=== PATIENT | female | born 1930 | race Caucasian/White ===

== ENCOUNTER 2020-03-27 13:10 | Inpatient (IN) | payer OTHER ==
[~2020-03-27] VITALS: Ht 160 cm; Wt 81.6 kg
[2020-03-27 13:11] VITALS: BP 188/64
[2020-03-27 14:32] LABS: HEMOGLOBIN 11.8 gm/dL (12.0-15.0); MCH 27.7 pg (26.0-34.0); MCHC 31.8 g/dL (28.0-37.0); MCV 87.2 fL (80.0-100.0); PLATELET COUNT 186 thou/uL (150-400); RBC 4.24 mil/uL (4.20-5.00); RDW 16.8 % (10.5-14.5); WBC 19.2 thou/uL (4.0-11.0)
[2020-03-27 14:42] LABS: CALCIUM 8.7 mg/dL (8.5-10.1); CREATININE 0.9 mg/dL (0.6-1.0); POTASSIUM 3.2 mmol/L (3.5-5.1)
[2020-03-27 14:47] LABS: ABSOLUTE NEUTROPHILS 17.9 thou/uL (1.4-8.2); ATYPICAL LYMPHS 2 %; MAGNESIUM 1.8 mg/dL (1.8-2.4)
[2020-03-27 14:48] LABS: ANISOCYTOSIS 1+; PLATELET ESTIMATE NORMAL
[2020-03-27 18:15] VITALS: BP 188/64
[2020-03-27 18:45] VITALS: BP 176/72
[2020-03-27 19:19] VITALS: BP 144/71
--- NOTE | 2020-03-27 22:09 | NUR ---
Arrived from ER around 1900. Adm hx,assessment done. Unable to do med rec at this time. Pt. is not interested stating she is so tired ,not feeloing well and not just up to it. She is requesting for her BP med and other HS meds . Explained to her unless she tells me what her meds are I can't call the doctor to get an order for it. She then decided she does not have to take it tonight but then worries about her BP. Daughter called who does not have a med list but able to tell me which pharmacy pt. is using. SCD's C/I due to bautista leg cellulitis , lovenox SQ given per order.
--- NOTE | 2020-03-27 22:45 | NUR ---
Dr. Ana Diehl notified of negative COVID PCR result who gave an order to DC enhanced precaution and take off isolation. supervisor costuming also notified.
[2020-03-28 00:07] VITALS: BP 151/43
[2020-03-28 03:11] LABS: HEMATOCRIT 34.7 % (37.0-47.0); HEMOGLOBIN 11.1 gm/dL (12.0-15.0); MCHC 32.1 g/dL (28.0-37.0); MCV 87.3 fL (80.0-100.0); RBC 3.98 mil/uL (4.20-5.00); RDW 16.5 % (10.5-14.5); WBC 14.8 thou/uL (4.0-11.0)
[2020-03-28 03:16] LABS: CALCIUM 8.2 mg/dL (8.5-10.1); CREATININE 0.8 mg/dL (0.6-1.0); POTASSIUM 3.4 mmol/L (3.5-5.1)
[2020-03-28 04:15] VITALS: BP 150/66
--- NOTE | 2020-03-28 05:45 | NUR ---
Pt. slept fair during the night. Tylenol given for generalized body ache with some help. SR,BBB with occasional PVC's. Wears brief for incontince. Assisted up to commode but her brief is already soaked and while going back to bed she has stress incontinence. Pt. was asked if she's ready to go over her med list and stated she has to call her daughter for her med list.
--- NOTE | 2020-03-28 07:36 | EKG ---
[facility] [place] [address] ELECTROCARDIOGRAM REPORT Name: MARILU JULIEN Room #: 356-P ADM IN M.R.#: [id number] Admission: 03/27/20 Attend Phys: Rodrigo Griffin MD Discharge: Date of : [birth year] Report #: [id number] THIS REPORT FOR: cc: Hung Veliz MD, Christopher MD Santiago, Patrick MD [facility] ~ THIS REPORT FOR: //name// [facility] ED Test Date: 2020-03-27 Test Time: 13:59:59 Pat Name: MARILU JULIEN Department: Room: 356 Gender: F Web Search Evaluator: [facility] : 1930 Requested By: Anand Donnelly Order Number: [id number] MD: Tito Solorzano Measurements Intervals [place] Rate: 69 P: 41 TN: 183 QRS: 36 QRSD: 152 T: 9 QT: 458 QTc: 491 Interpretive Statements Sinus rhythm Atrial premature complex Right bundle branch block No previous ECG available for comparison Electronically Signed On 03-28-2020 7:36:11 CDT by Tito Solorzano [email or web address] <ELECTRONICALLY SIGNED> By: Tito Solorzano MD, FACC 03/28/20 0736 [id number] Tito Solorzano MD, [facility] /EPI
[2020-03-28 07:51] VITALS: BP 183/53
[2020-03-28] MEDS ORDERED: DESYREL150 MG PO (10:18)
[2020-03-28] MEDS ORDERED: TIZANIDINE HCL 22 M1 PO (10:19)
[2020-03-28] MEDS ORDERED: KLOR-CON 1010 MEQ PO (10:19)
[2020-03-28] MEDS ORDERED: LASIX 40 MG TAB40 MG PO (10:20)
[2020-03-28] MEDS ORDERED: GABAPENTIN100 MG PO (10:20)
[2020-03-28] MEDS ORDERED: LEVOTHYROXINE125 MCG PO (10:22)
[2020-03-28] MEDS ORDERED: LOPRESSOR50 MG PO (10:22)
[2020-03-28] MEDS ORDERED: LEXAPRO20 MG PO (10:23)
[2020-03-28 11:38] VITALS: BP 191/77
--- NOTE | 2020-03-28 19:19 | NUR ---
call placed to BIOLOGICAL LAB TECHNICIAN regarding BP, 188/90 hr 116. reported last dose of metoprolol 50 mg. new order for prn hydralazine given now. hs nurse made aware and will give dose.
[2020-03-28 21:15] VITALS: BP 193/97
[2020-03-29 00:04] VITALS: BP 173/65
[2020-03-29 04:30] VITALS: BP 181/73
--- NOTE | 2020-03-29 05:26 | NUR ---
Pt. slept better last night. O2 sat 87-88% in RA while asleep. PROCESS CHEESE COOKER and RT notified. O2 at 2L/NC placed with O2 sat in the mid 90's. Denies any pain, afebrile. BP elevated,prn med given. Up with assist to commode with periods of incontinence.
--- NOTE | 2020-03-29 05:31 | NUR ---
[employer] and houseperson notified of 2nd negative COVID PCR results.
[2020-03-29 05:53] LABS: HEMATOCRIT 31.5 % (37.0-47.0); HEMOGLOBIN 10.4 gm/dL (12.0-15.0); MCH 28.6 pg (26.0-34.0); MCHC 33.1 g/dL (28.0-37.0); MCV 86.6 fL (80.0-100.0); RBC 3.63 mil/uL (4.20-5.00); WBC 10.2 thou/uL (4.0-11.0)
[2020-03-29 06:01] LABS: CALCIUM 8.5 mg/dL (8.5-10.1); CREATININE 0.6 mg/dL (0.6-1.0); POTASSIUM 3.2 mmol/L (3.5-5.1)
[2020-03-29 06:11] VITALS: BP 167/66
[2020-03-29 07:30] VITALS: BP 150/56
[2020-03-29 10:05] LABS: URINE BILIRUBIN NEGATIVE (Negative); URINE BLOOD TRACE (Negative); URINE CLARITY CLEAR; URINE COLOR YELLOW; URINE GLUCOSE-RANDOM* NEGATIVE (Negative); URINE KETONES 1+ (Negative); URINE LEUKOCYTES-REFLEX NEGATIVE (Negative); URINE NITRITE-REFLEX NEGATIVE (Negative); URINE PROTEIN (DIPSTICK) TRACE (Negative); URINE SPECIFIC GRAVITY 1.015 (1.005-1.035); URINE UROBILINOGEN 0.2 E.U./dl (0.2-1.0)
--- NOTE | 2020-03-29 12:45 | NUR ---
Md called and notified of K+ 3.2, and Chloride + 108. New orders placed in system. Pt in no acute distress will continue to monitor.
--- NOTE | 2020-03-29 14:35 | NUR ---
INITIAL ASSESSMENT: Received consult for discharge planning. SW reviewed chart and spoke with nursing and attending physician. Pt was admitted from home due to sepsis/cellulitis. Pt placed in Enhanced Isolation to r/o COVID-19. Pt is negative x 2. Pt is afebrile and on IV abx. Pt is on 2L of O2. SW spoke with pt vie phone. Introduced role of SW. Pt is alert/orientated and reports she lives alone in a high-rise apt complex. Pt has elevator access and no stairs to navigate. Prior to admission, pt was using a walker. Pt's dtr, Susi, is supportive and involved in pt's care. No hx of services or post-acute placement. Pt's PCP is Dr. Hung Veliz. Pt's goal is to return home when medically stable. SW is following to assist as needed with discharge planning.
[2020-03-29 17:02] VITALS: BP 180/99
--- NOTE | 2020-03-29 18:54 | NUR ---
Report given to nurse, pt remains alert and responsive, transported via wc to unit. Shravan called and notified of transfer.
[2020-03-29 19:43] VITALS: BP 139/70
--- NOTE | 2020-03-30 03:48 | NUR ---
ASSESSMENT DOCUMENTED.PT BEEN RESTING IN NO ACUTE DISTRESS.AOX4.CONFEDERATED COOS.VSS.BLES ELEVATED D/T EDEMA/CELLULITIS.O2 AT 2LITERS PNC WHILE ASLEEP.PT DENIES PAIN OR ANY DISTRESS AT THIS TIME.POSSIBLE DISCHARGE TODAY OR TOMORROW.
[2020-03-30 04:20] VITALS: BP 173/77
[2020-03-30 05:55] LABS: HEMATOCRIT 30.6 % (37.0-47.0); MCH 28.5 pg (26.0-34.0); MCHC 32.6 g/dL (28.0-37.0); MCV 87.5 fL (80.0-100.0); RBC 3.5 mil/uL (4.20-5.00); RDW 17.1 % (10.5-14.5)
[2020-03-30 06:39] LABS: CALCIUM 8.5 mg/dL (8.5-10.1); CREATININE 0.8 mg/dL (0.6-1.0); POTASSIUM 3.2 mmol/L (3.5-5.1)
[2020-03-30 08:15] VITALS: BP 192/79
[2020-03-30 13:20] VITALS: BP 161/87
--- NOTE | 2020-03-30 14:37 | NUR ---
AAOX4. ROBINSON. K+ 3.2, REPLACED. SR WITH BBB PER TELE. INCONTINENT OF STOOL AND URINE, MULTIPLE BED CHANGES. WILL CONTINUE TO FOLLOW CLOSELY.
[2020-03-30 16:13] VITALS: BP 161/87
[2020-03-30 16:52] VITALS: BP 192/79
[2020-03-30 20:07] VITALS: BP 194/64
[2020-03-30] MEDS ORDERED: PREVACID30 MG PO (21:03)
[2020-03-31] VITALS (9 sets, daily range): BP systolic 134–198; BP diastolic 57–74
--- NOTE | 2020-03-31 03:49 | NUR ---
ASSESSMENT DOCUMENTED.PT BEEN RESTING IN NO ACUTE DISTRESS.A/OX4 W/FORGETFULNESS.C/O GASTRIC REFLUX THAT WAS TREATED WITH PPI PER ON SITE COORDINATOR ORDERS W/RELIEF.SR/BBB ON MONITOR.DENIES PAIN OR ANY OTHER NEEDS AT THIS TIME.
--- NOTE | 2020-03-31 18:43 | NUR ---
PT CARE ASSUMED AT 0700. ASSESSMENTS CHARTED. MEDICATION CHARTED. PT HAS STRESS INCONTINENCE; IF SHE NEEDS TO GO SHE MEANS NOW. LOOSE BM. STEFANIA IV. PT UTILIZES A PUREWICK. BP OCCASSIONALLY HIGH; HYDRALAZINE TO BE GIVEN > 160. PT UTILIZES BSC.
[2020-04-01] VITALS (8 sets, daily range): BP systolic 153–186; BP diastolic 73–86
--- NOTE | 2020-04-01 03:57 | NUR ---
ASSESSMENT DOCUMENTED.PT BEEN SLEEPING MOST OF THE NOC.A/OX4 WITH FORGETFULNESS.VSS.DENIES ANY NEEDS OR ANY DISTRESS AT THIS TIME.POSSIBLE DISCHARGE TO HOME WITH HH TOMORROW.WILL CONT TO MONITOR PER POC.
--- NOTE | 2020-04-01 17:47 | NUR ---
PT CARE ASSUMED AT 0700. ASSESSMENTS CHARTED. MEDICATION CHARTED. PT HAD TWO BM'S; ONE LOOSE AND ONE PASTY. PT REQUESTED AND RECIEVED IMODIUM. PT RECIEVED HYDRALAZINE FOR BP > 160. IF PT CALLS FOR BM IT IS URGENT. DO NOT USE RT SIDE FOR STICKS OR BP'S. POSSIBLY HOME THURSDAY WITH HH.
[2020-04-01] MEDS ORDERED: TRAMADOL 50 MG50 MG PO (21:41)
[2020-04-02 04:12] LABS: HEMATOCRIT 31.7 % (37.0-47.0); HEMOGLOBIN 10.4 gm/dL (12.0-15.0); MCH 28.4 pg (26.0-34.0); MCHC 32.7 g/dL (28.0-37.0); MCV 86.8 fL (80.0-100.0); RBC 3.65 mil/uL (4.20-5.00); RDW 16.6 % (10.5-14.5); WBC 6.3 thou/uL (4.0-11.0)
[2020-04-02 04:20] LABS: CALCIUM 8.4 mg/dL (8.5-10.1); CREATININE 0.8 mg/dL (0.6-1.0); POTASSIUM 3.5 mmol/L (3.5-5.1)
--- NOTE | 2020-04-02 04:50 | NUR ---
ASSUMED CARE OF PATIENT AT 1900. PATIENT C/O SHOULDER PAIN AND BILATERAL LEG PAIN. PATIENT STATED SHE TAKES TRAMADOL BID AT HOME. UPDATED MED REC AND OBTAINED ORDER FOR PRN TRAMADOL. ADMINISTERED ORDERED. PATIENT HAS 2-3+ BLE EDEMA. PATIENT DENIES SOA AND CHEST PAIN AND CONTINUES ON RA WITH ADEQUATE OXYGEN SATUATIONS.
[2020-04-02 05:45] VITALS: BP 189/83
[2020-04-02 08:21] VITALS: BP 174/73
[2020-04-02 11:30] VITALS: BP 164/94
[2020-04-02] MEDS ORDERED: AMOX TR-K CLV1 EAC4 PO (11:47)
[2020-04-02] MEDS ORDERED: METOPROLOL SUCC50 MG PO (11:47)
[2020-04-02] MEDS ORDERED: BENAZEPRIL HCL20 MG PO (11:47)
[2020-04-02] MEDS ORDERED: ACETAMINOPHEN325 M1 PO (11:47)
[2020-04-02 13:10] VITALS: BP 161/87
--- NOTE | 2020-04-02 15:56 | NUR ---
ASSUMED CARE PT SHIFT CHANGE. ASSESSMENTS CHARTED.MEDS GIVEN PER SEP. PT ALERT AND ORIENTED.VSS. BP ELEVATED- MANAGED WITH BP MEDS. PT UP X1 ASSIST TOLERATING WELL. O2 SATS WNL ON RA. DENIES SOB. DC ORDERS ACKNOWLEDGED AND IMPLEMENTED. DISCUSSED WITH PT AND DAUGHTER. DISCUSSED PRIMARY CARE PHYSICIANS PT WOULD LIKE TO SWITCH. DISCUSSED IN DETAIL MEDICATIONS. IV REMOVED. TELE REMOVED. PT LEFT UNIT WITH ALL BELONGINGS ACCOMPANIED BY DAUGHTER.
[2020-04-02 16:03] VITALS: BP 161/87
--- NOTE | 2020-04-02 16:28 | NUR ---
PT [facility] TODAY [facility] DC ORDERS/SUMMARY SPOKE WITH NERIS IN INTAKE SHE RECEIVED ORDERS AND WILL NOTIFY PT TO SET UP VISITS.
== END 2020-04-02 13:50 | disposition home health service (06) | DRG 871 ==
LOC: ER 13:10 → EROBS 16:54 → 3W 16:54 → 2N 03-29 18:02
PROVIDERS: Emergency Medicine; Internal Medicine; ADMIT Hospitalist; ATTEND Hospitalist
DX: A41.9 Sepsis, unspecified organism (principal); J18.9 Pneumonia, unspecified organism; J96.01 Acute respiratory failure with hypoxia; G92 Toxic encephalopathy; L03.116 Cellulitis of left lower limb; L03.115 Cellulitis of right lower limb; R65.20 Severe sepsis without septic shock; I10 Essential (primary) hypertension; E03.9 Hypothyroidism, unspecified; K21.9 Gastro-esophageal reflux disease without esophagitis; R19.7 Diarrhea, unspecified; N32.81 Overactive bladder; E87.6 Hypokalemia; Z20.828 Contact with and (suspected) exposure to other viral communicable diseases; Z79.899 Other long term (current) drug therapy; Z85.41 Personal history of malignant neoplasm of cervix uteri; Z85.3 Personal history of malignant neoplasm of breast
CPT/HCPCS: 10080; 10194; 10879

== ENCOUNTER 2020-10-27 14:22 | Emergency (ER) | payer OTHER ==
[~2020-10-27] VITALS: Ht 160 cm; Wt 77.1 kg
[~2020-10-27 14:22] MED LIST: ACETAMINOPHEN325 M1 PO; AMOX TR-K CLV1 EAC4 PO; BENAZEPRIL HCL20 MG PO; DESYREL150 MG PO; GABAPENTIN100 MG PO; KLOR-CON 1010 MEQ PO; LASIX 40 MG TAB40 MG PO; LEVOTHYROXINE125 MCG PO; LEXAPRO20 MG PO; LOPRESSOR50 MG PO; METOPROLOL SUCC50 MG PO; PREVACID30 MG PO; TIZANIDINE HCL 22 M1 PO; TRAMADOL 50 MG50 MG PO
[2020-10-27 15:31] LABS: ABSOLUTE NEUTROPHILS 3.6 thou/uL (1.4-8.2); BASOPHILS 1.1 % (0.0-2.0); HEMATOCRIT 33.7 % (37.0-47.0); LYMPHOCYTES 17.9 % (24.0-44.0); MCH 28.9 pg (26.0-34.0); MCHC 32.6 g/dL (28.0-37.0); MCV 88.7 fL (80.0-100.0); MONOCYTES 8.9 % (1.0-8.0); PLATELET COUNT 219 thou/uL (150-400); POLYS 66.1 % (36.0-66.0); RBC 3.79 mil/uL (4.20-5.00); RDW 15.5 % (10.5-14.5); WBC 5.5 thou/uL (4.0-11.0)
[2020-10-27 15:37] LABS: CALCIUM 8.5 mg/dL (8.5-10.1); CREATININE 1.1 mg/dL (0.6-1.0); POTASSIUM 3.7 mmol/L (3.5-5.1)
[2020-10-27 15:43] LABS: TOTAL BILIRUBIN 0.3 mg/dL (0.2-1.0); TOTAL PROTEIN 6.6 g/dL (6.4-8.2)
[2020-10-27 17:16] VITALS: BP 173/53
== END 2020-10-27 17:16 | disposition home or self-care (01) ==
LOC: ER 14:22
PROVIDERS: Physician Assistant
DX: L03.115 Cellulitis of right lower limb (principal); I10 Essential (primary) hypertension; E78.00 Pure hypercholesterolemia, unspecified; Z88.0 Allergy status to penicillin; Z79.899 Other long term (current) drug therapy; Z90.710 Acquired absence of both cervix and uterus

== ENCOUNTER → 2020-12-03 | Outpatient (CLI) | payer OTHER | LOC: HYPER 08:46 | PROVIDERS: ATTEND Emergency Medicine | DX: L97.822 Non-pressure chronic ulcer of other part of left lower leg with fat layer exposed (principal); L97.812 Non-pressure chronic ulcer of other part of right lower leg with fat layer exposed; L03.116 Cellulitis of left lower limb; I89.0 Lymphedema, not elsewhere classified; I10 Essential (primary) hypertension; E66.9 Obesity, unspecified; Z68.31 Body mass index [BMI] 31.0-31.9, adult ==

== ENCOUNTER → 2020-12-17 | Outpatient (CLI) | payer OTHER ==
[~2020-12-17] MED LIST changes: +ASA81BEC PO; +BENZONATATE100 MG PO; +CLOTRIMAZOLE-BE15 GM TOP; +GENTAK3.5 G1 TOP; +MECLIZINE HCL25 M1 PO; +PLAVIX 75 MG TA75 MG PO
== END ==
LOC: SJCVCIMAG 15:00
PROVIDERS: ATTEND Emergency Medicine
DX: I70.203 Unspecified atherosclerosis of native arteries of extremities, bilateral legs (principal); L97.818 Non-pressure chronic ulcer of other part of right lower leg with other specified severity; L97.828 Non-pressure chronic ulcer of other part of left lower leg with other specified severity

== ENCOUNTER → 2020-12-18 | Outpatient (CLI) | payer OTHER | LOC: SJCVC 14:28 | PROVIDERS: ATTEND Nuclear Medicine Nuclear Cardiology | DX: I73.9 Peripheral vascular disease, unspecified (principal); L97.919 Non-pressure chronic ulcer of unspecified part of right lower leg with unspecified severity; L97.929 Non-pressure chronic ulcer of unspecified part of left lower leg with unspecified severity; I10 Essential (primary) hypertension; Z88.0 Allergy status to penicillin; Z88.5 Allergy status to narcotic agent; Z88.8 Allergy status to other drugs, medicaments and biological substances; Z79.899 Other long term (current) drug therapy; Z87.891 Personal history of nicotine dependence ==

== ENCOUNTER → 2020-12-18 | Outpatient (CLI) | payer OTHER | LOC: HYPER 07:58 | PROVIDERS: ATTEND Emergency Medicine | DX: L97.822 Non-pressure chronic ulcer of other part of left lower leg with fat layer exposed (principal); L97.812 Non-pressure chronic ulcer of other part of right lower leg with fat layer exposed; L03.115 Cellulitis of right lower limb; L03.116 Cellulitis of left lower limb; I89.0 Lymphedema, not elsewhere classified; E66.9 Obesity, unspecified; I10 Essential (primary) hypertension; Z68.31 Body mass index [BMI] 31.0-31.9, adult ==

== ENCOUNTER 2020-12-21 18:18 | Emergency (ER) | payer OTHER ==
[~2020-12-21] VITALS: Ht 160 cm; Wt 79.4 kg
[2020-12-21 19:35] LABS: ABSOLUTE NEUTROPHILS 4.6 thou/uL (1.4-8.2); BASOPHILS 0.5 % (0.0-2.0); EOSINOPHILS 1.8 % (0.0-3.0); HEMATOCRIT 33.2 % (37.0-47.0); HEMOGLOBIN 10.9 gm/dL (12.0-15.0); LYMPHOCYTES 15.8 % (24.0-44.0); MCH 28.9 pg (26.0-34.0); MCHC 32.9 g/dL (28.0-37.0); MONOCYTES 12.4 % (1.0-8.0); PLATELET COUNT 221 thou/uL (150-400); POLYS 69.5 % (36.0-66.0); RBC 3.77 mil/uL (4.20-5.00); RDW 15.6 % (10.5-14.5); WBC 6.7 thou/uL (4.0-11.0)
[2020-12-21 19:41] LABS: ANION GAP 10 mmol/L (7-16); BUN 12 mg/dL (7-18); CALCIUM 8.1 mg/dL (8.5-10.1); CHLORIDE 106 mmol/L (98-107); CO2 26 mmol/L (21-32); CREATININE 1.1 mg/dL (0.6-1.0); GLUCOSE 138 mg/dL (74-106); POTASSIUM 3.5 mmol/L (3.5-5.1); SODIUM 142 mmol/L (136-145)
[2020-12-21 19:51] LABS: ALBUMIN 2.9 g/dL (3.4-5.0); SGOT 16 U/L (15-37); SGPT 17 U/L (14-59); TOTAL BILIRUBIN 0.3 mg/dL (0.2-1.0); TROPONIN-I <0.06 ng/mL (<0.06)
[2020-12-21 20:25] LABS: APTT 21.3 Seconds (24.5-32.8); PROTIME 10.9 Seconds (10.5-12.1)
[2020-12-21 21:39] VITALS: BP 171/53
--- NOTE | 2020-12-24 07:19 | EKG ---
[place] [address] [facility] [address] ELECTROCARDIOGRAM REPORT Name: MARILU JULIEN Room #: [facility]#: [id number] Admission: 12/21/20 Attend Phys: Discharge: 12/21/20 Date of : [birth year] Report #: [id number] [facility] ED Test Date: 2020-12-21 Test Time: 18:36:43 Pat Name: MARILU JULIEN Department: Room: Gender: F Non Destructive Testing Supervisor: MARIO : 1930 Requested By: Thompson Mccoy Order Number: [id number] MD: Tito Solorzano Measurements Intervals [place] Rate: 53 P: 35 W[place]: 157 QRS: 70 QRSD: 150 T: 25 QT: 529 QTc: 497 Interpretive Statements Sinus arrhythmia Right bundle branch block Compared to ECG 03/27/2020 13:59:59 Sinus rhythm no longer present Atrial premature complex(es) no longer present Electronically Signed On 12-24-2020 7:19:35 CDT by Tito Solorzano [email or web address] <ELECTRONICALLY SIGNED> By: Tito Solorzano MD, [facility] 12/24/20 0719 35 35 Tito Solorzano MD, FACC /EPI
== END 2020-12-21 21:39 | disposition home or self-care (01) ==
LOC: ER 18:18
PROVIDERS: Emergency Medicine
DX: R07.89 Other chest pain (principal); R41.82 Altered mental status, unspecified; I10 Essential (primary) hypertension; E78.00 Pure hypercholesterolemia, unspecified; Z88.5 Allergy status to narcotic agent; Z88.0 Allergy status to penicillin; Z88.8 Allergy status to other drugs, medicaments and biological substances; Z79.899 Other long term (current) drug therapy; Z79.82 Long term (current) use of aspirin; Z90.710 Acquired absence of both cervix and uterus; Z96.651 Presence of right artificial knee joint

== ENCOUNTER → 2020-12-21 | Outpatient (CLI) | payer OTHER ==
[~2020-12-21] VITALS: Ht 157.5 cm; Wt 79.4 kg
[2020-12-21 07:24] VITALS: BP 216/68
[2020-12-21 07:54] LABS: HEMATOCRIT 33.6 % (37.0-47.0); HEMOGLOBIN 10.9 gm/dL (12.0-15.0); MCH 28.3 pg (26.0-34.0); MCHC 32.5 g/dL (28.0-37.0); RBC 3.86 mil/uL (4.20-5.00); WBC 4.5 thou/uL (4.0-11.0)
[2020-12-21 07:56] LABS: CALCIUM 8.7 mg/dL (8.5-10.1); CREATININE 1.1 mg/dL (0.6-1.0); POTASSIUM 3.9 mmol/L (3.5-5.1)
== END | disposition home or self-care (01) ==
LOC: CATH 06:52
PROVIDERS: ATTEND Nuclear Medicine Nuclear Cardiology
DX: I70.248 Atherosclerosis of native arteries of left leg with ulceration of other part of lower leg (principal); L97.929 Non-pressure chronic ulcer of unspecified part of left lower leg with unspecified severity; I10 Essential (primary) hypertension; I25.10 Atherosclerotic heart disease of native coronary artery without angina pectoris; I70.1 Atherosclerosis of renal artery; E78.00 Pure hypercholesterolemia, unspecified; Z98.890 Other specified postprocedural states; Z79.899 Other long term (current) drug therapy; Z96.651 Presence of right artificial knee joint; Z90.710 Acquired absence of both cervix and uterus; Z96.641 Presence of right artificial hip joint; Z82.49 Family history of ischemic heart disease and other diseases of the circulatory system; Z87.891 Personal history of nicotine dependence; Z85.3 Personal history of malignant neoplasm of breast; Z80.0 Family history of malignant neoplasm of digestive organs

== ENCOUNTER → 2021-01-31 | Outpatient (CLI) | payer OTHER | LOC: SJCVCIMAG 09:59 | PROVIDERS: ATTEND Nuclear Medicine Nuclear Cardiology | DX: I65.23 Occlusion and stenosis of bilateral carotid arteries (principal); M79.604 Pain in right leg; M79.89 Other specified soft tissue disorders; I73.9 Peripheral vascular disease, unspecified; I77.9 Disorder of arteries and arterioles, unspecified; I10 Essential (primary) hypertension; L97.919 Non-pressure chronic ulcer of unspecified part of right lower leg with unspecified severity; L97.929 Non-pressure chronic ulcer of unspecified part of left lower leg with unspecified severity; E78.5 Hyperlipidemia, unspecified; Z87.891 Personal history of nicotine dependence; Z82.49 Family history of ischemic heart disease and other diseases of the circulatory system; Z88.0 Allergy status to penicillin; Z88.5 Allergy status to narcotic agent; Z88.8 Allergy status to other drugs, medicaments and biological substances; Z79.82 Long term (current) use of aspirin; Z79.899 Other long term (current) drug therapy ==

== ENCOUNTER → 2021-02-11 | Outpatient (CLI) | payer OTHER ==
[2021-02-11 15:34] LABS: CREATININE 1.1 mg/dL (0.6-1.0)
== END ==
LOC: CAT 10:51 → LAB 14:33 → CAT 14:33
PROVIDERS: ATTEND Nuclear Medicine Nuclear Cardiology
DX: I65.23 Occlusion and stenosis of bilateral carotid arteries (principal)

== ENCOUNTER → 2021-02-13 | Outpatient (CLI) | payer OTHER | LOC: CAT 09:02 | PROVIDERS: ATTEND Nuclear Medicine Nuclear Cardiology | DX: I65.23 Occlusion and stenosis of bilateral carotid arteries (principal) ==

== ENCOUNTER 2021-03-22 01:15 | Emergency (ER) | payer OTHER ==
[~2021-03-22] VITALS: Ht 167.6 cm; Wt 90.7 kg
[2021-03-22 03:22] VITALS: BP 130/88
== END 2021-03-22 03:23 ==
LOC: ER 01:15
DX: S01.01XA Laceration without foreign body of scalp, initial encounter (principal); S00.03XA Contusion of scalp, initial encounter; I10 Essential (primary) hypertension; E78.00 Pure hypercholesterolemia, unspecified; Z90.89 Acquired absence of other organs; Z90.710 Acquired absence of both cervix and uterus; Z79.899 Other long term (current) drug therapy; Z88.5 Allergy status to narcotic agent; Z88.0 Allergy status to penicillin; W08.XXXA Fall from other furniture, initial encounter; Y93.89 Activity, other specified; Y92.89 Other specified places as the place of occurrence of the external cause; Y99.8 Other external cause status

== ENCOUNTER → 2021-03-25 | Outpatient (CLI) | payer OTHER | LOC: HYPER 01:33 | PROVIDERS: ATTEND Emergency Medicine | DX: L97.822 Non-pressure chronic ulcer of other part of left lower leg with fat layer exposed (principal); L97.812 Non-pressure chronic ulcer of other part of right lower leg with fat layer exposed; S80.822D Blister (nonthermal), left lower leg, subsequent encounter; S80.821D Blister (nonthermal), right lower leg, subsequent encounter; L03.116 Cellulitis of left lower limb; I89.0 Lymphedema, not elsewhere classified; E66.9 Obesity, unspecified; Z68.31 Body mass index [BMI] 31.0-31.9, adult; Z79.899 Other long term (current) drug therapy; X58.XXXD Exposure to other specified factors, subsequent encounter ==

== ENCOUNTER → 2021-04-09 | Outpatient (CLI) | payer OTHER | LOC: HYPER 09:11 | PROVIDERS: ATTEND Emergency Medicine | DX: L97.812 Non-pressure chronic ulcer of other part of right lower leg with fat layer exposed (principal); L97.822 Non-pressure chronic ulcer of other part of left lower leg with fat layer exposed; L03.116 Cellulitis of left lower limb; I89.0 Lymphedema, not elsewhere classified; I10 Essential (primary) hypertension; E66.9 Obesity, unspecified; Z68.31 Body mass index [BMI] 31.0-31.9, adult; Z79.899 Other long term (current) drug therapy ==

== ENCOUNTER → 2021-04-18 | Outpatient (CLI) | payer OTHER | LOC: HYPER 10:39 | PROVIDERS: ATTEND Emergency Medicine | DX: L97.812 Non-pressure chronic ulcer of other part of right lower leg with fat layer exposed (principal); L97.822 Non-pressure chronic ulcer of other part of left lower leg with fat layer exposed; L03.116 Cellulitis of left lower limb; I89.0 Lymphedema, not elsewhere classified; I10 Essential (primary) hypertension; E66.9 Obesity, unspecified; Z68.31 Body mass index [BMI] 31.0-31.9, adult ==

== ENCOUNTER → 2021-05-24 | Outpatient (CLI) | payer OTHER | LOC: HYPER 08:53 | PROVIDERS: ATTEND Emergency Medicine Emergency Medical Services | DX: L97.822 Non-pressure chronic ulcer of other part of left lower leg with fat layer exposed (principal); L97.812 Non-pressure chronic ulcer of other part of right lower leg with fat layer exposed; L03.116 Cellulitis of left lower limb; I89.0 Lymphedema, not elsewhere classified; I10 Essential (primary) hypertension; E66.9 Obesity, unspecified; Z79.899 Other long term (current) drug therapy ==

== ENCOUNTER → 2021-06-13 | Outpatient (CLI) | payer OTHER | LOC: HYPER 12:55 | PROVIDERS: ATTEND Emergency Medicine | DX: L97.822 Non-pressure chronic ulcer of other part of left lower leg with fat layer exposed (principal); L97.812 Non-pressure chronic ulcer of other part of right lower leg with fat layer exposed; L03.116 Cellulitis of left lower limb; I89.0 Lymphedema, not elsewhere classified; I10 Essential (primary) hypertension; E66.9 Obesity, unspecified; R60.0 Localized edema; Z68.31 Body mass index [BMI] 31.0-31.9, adult ==

== ENCOUNTER 2021-07-24 15:29 | Emergency (ER) | payer OTHER ==
[~2021-07-24] VITALS: Ht 160 cm; Wt 81.7 kg
[2021-07-24 15:58] LABS: ABSOLUTE NEUTROPHILS 2.8 thou/uL (1.4-8.2); BASOPHILS 1.2 % (0.0-2.0); EOSINOPHILS 1.1 % (0.0-3.0); HEMATOCRIT 25.3 % (37.0-47.0); HEMOGLOBIN 7.7 gm/dL (12.0-15.0); LYMPHOCYTES 17.2 % (24.0-44.0); MCHC 30.5 g/dL (28.0-37.0); MONOCYTES 17.2 % (1.0-8.0); PLATELET COUNT 175 thou/uL (150-400); POLYS 63.3 % (36.0-66.0); RBC 3.51 mil/uL (4.20-5.00); RDW 17.8 % (10.5-14.5); WBC 4.4 thou/uL (4.0-11.0)
--- NOTE | 2021-07-24 15:59 | EKG ---
[address] [place] [address] [place] [address] ELECTROCARDIOGRAM REPORT Name: MARILU JULIEN Room #: [facility]#: [id number] Admission: 07/24/21 Attend Phys: Discharge: Date of : [birth year] Report #: [id number] [facility] ED Test Date: 2021-07-24 Test Time: 15:35:14 Pat Name: MARILU JULIEN Department: Room: Gender: F Client Technical Professional: JYOTI : 1930 Requested By: Brandyn Hancock Order Number: [id number] MD: Nadir Diamond Measurements Intervals [place] Rate: 37 P: 0 MD: QRS: 126 QRSD: 171 T: -10 QT: 581 QTc: 456 Interpretive Statements 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
[2021-07-24 16:04] LABS: CREATININE 1.2 mg/dL (0.6-1.0); POTASSIUM 4.1 mmol/L (3.5-5.1)
[2021-07-24 16:15] LABS: ALBUMIN 2.8 g/dL (3.4-5.0); DIRECT BILIRUBIN 0.1 mg/dL (<0.1-0.2); MAGNESIUM 2.6 mg/dL (1.8-2.4); TOTAL BILIRUBIN 0.3 mg/dL (0.2-1.0); TOTAL PROTEIN 6.1 g/dL (6.4-8.2)
[2021-07-24 19:30] VITALS: BP 179/113
== END 2021-07-24 19:32 | disposition home or self-care (01) ==
LOC: ER 15:29
PROVIDERS: Student in an Organized Health Care Education/Training Program
DX: U07.1 COVID-19 (principal); R00.1 Bradycardia, unspecified; I10 Essential (primary) hypertension; E78.00 Pure hypercholesterolemia, unspecified; Z98.890 Other specified postprocedural states; Z90.710 Acquired absence of both cervix and uterus; Z79.899 Other long term (current) drug therapy; Z88.0 Allergy status to penicillin; Z88.8 Allergy status to other drugs, medicaments and biological substances; Z88.5 Allergy status to narcotic agent